=== PATIENT | female | born 1980 | race Two or more races ===

== ENCOUNTER 2024-07-05 23:20 | Emergency (ER) | payer OTHER ==
[~2024-07-05] VITALS: Ht 170.2 cm; Wt 81.0 kg
[2024-07-05 23:34] VITALS: PULSE 151; RESP 26; O2SAT 94
[2024-07-05] MEDS: DexAMETHasone SOD PHOS 10MG/1ML VIAL INJ IM ONE (23:34)
[2024-07-05] MEDS: ALBUTEROL SULF 2.5 MG/0.5ML(0.5%) NEB SOLN NEB ONE ×2 (23:45)
[2024-07-05] MEDS: IPRATROPIUM BROM 0.5 MG/2.5ML INH SOL NEB ONE (23:45)
--- NOTE | 2024-07-05 23:54 | ED.PDOC ---
SOB-HPI HPI Comments 44-year-old female who came to ER for shortness of breath. Patient does have history of asthma. 30 minutes ago, patient was asleep when she woke up the sudden-onset shortness of breath and wheezing. Was noted to be saturating 85% on room air. Breathing treatment taken at home has offered no relief prompting patient to come to the ER. Chief Complaint: Shortness of Breath Time Seen by MD: 23:51 Reviewed notes: Nurses Notes Information Source: Patient Mode of Arrival: Ambulatory Severity: Moderate Timing: Minutes Duration: Since onset Context: At Rest History of: Asthma, Anxiety Prehospital treatment: None Modifying Factors: Nothing Associated Signs and Symptoms: Wheeze, Chest Pain Quality: Tightness Radiation: No Radiation If cough with SOB: Non-Productive Review of Systems: REVIEW OF SYSTEMS: No fever, no chills, or fatigue HEENT: No sore throat, no earache, no congestion, no neck pain. Cardiac: No chest pain. No palpitations. Lungs: (+)shortness of breath, (+) wheezing, no cough. GI: No nausea, no vomiting, no diarrhea, no constipation, no abdominal pain : No dysuria, frequency, or urgency. No hematuria. Musculoskeletal: No joint pain , no joint swelling, no extremity edema. Skin: No rash, no itching. Neuro: No headache, no dizziness, no weakness Vital Signs Vital Signs Date Time Temp Pulse Resp B/P (MAP) Pulse Ox O2 Delivery O2 Flow Rate FiO2 07/05/24 23:46 20 98 Nasal Cannula* 6 44 07/05/24 23:34 151 07/05/24 23:34 122/85 (97) 07/05/24 23:22 97.5 Physical Exam General: Awake, alert and oriented. No acute distress. Skin: Skin in warm, dry and intact. Appropriate color for ethnicity. Nailbeds pink with no cyanosis. HEENT: The head is normocephalic and atraumatic. Conjunctivae are clear without exudates or hemorrhage. Sclera is non-icteric. EOM are intact. No signs of nystagmus. Eyelids are normal in appearance without swelling or lesions. Oral mucosa is pink and moist Neck: The neck is supple with normal range of motion. No JVD. Cardiac: Heart rate and rhythm are normal. No murmurs, gallops, or rubs are auscultated. Respiratory: No signs of respiratory distress. Positive wheezes bilaterally. Abdominal: Abdomen is soft, non-tender without distention. Bowel sounds are present and normoactive in all four quadrants. Extremities: Upper and lower extremities are atraumatic in appearance without deformity or edema. Neurological: The patient is awake, alert and oriented to person, place, and time with normal speech. Speech is clear. There is no facial asymmetry. Psychiatric: Appropriate mood and affect. Good judgement and insight. No visual or auditory hallucinations. 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 Was a procedure done?: No Differential Dx Differential Diagnosis: Anxiety, Asthma, Bronchitis, CHF, COPD, Myocardial infarction, Panic Attack, Pneumonia, Respiratory Distress, URI, Other X-Ray, Labs, Meds, VS Vital Signs Date Time Temp Pulse Resp B/P (MAP) Pulse Ox O2 Delivery O2 Flow Rate FiO2 07/05/24 23:46 20 98 Nasal Cannula* 6 44 07/05/24 23:34 151 26 94 Nasal Cannula* 6 44 07/05/24 23:34 151 26 122/85 (97) 94 07/05/24 23:22 26 85 Room Air* 0 21 07/05/24 23:22 97.5 151 26 122/88 (99) 85 Lab Test 07/06/24 00:33 07/05/24 23:45 Range/Units Troponin I High Sensitivity 4 < 3 L </=34 ng/L White Blood Count 8.8 4.4-10.8 10^3/uL Red Blood Count 4.42 4.0-5.20 10^6/uL Hemoglobin 13.6 12.2-16.2 g/dL Hematocrit 41.4 36.0-46.0 % Mean Corpuscular Volume 93.6 80.0-100.0 fL Mean Corpuscular Hemoglobin 30.8 28.0-32.0 pg Mean Corpuscular Hemoglobin Concent 32.9 32.0-36.0 g/dL Red Cell Distribution Width 13.4 11.8-14.3 % Platelet Count 352 140-450 10^3/uL Mean Platelet Volume 7.2 6.9-10.8 fL Neutrophils (%) (Auto) 75.2 37.0-80.0 % Lymphocytes (%) (Auto) 14.0 10.0-50.0 % Monocytes (%) (Auto) 5.1 0.0-12.0 % Eosinophils (%) (Auto) 5.1 0.0-7.0 % Basophils (%) (Auto) 0.6 0.0-2.0 % Neutrophils # (Auto) 6.6 1.6-8.6 10 ^3/uL Lymphocytes # (Auto) 1.2 0.4-5.4 10 ^3/uL Monocytes # (Auto) 0.5 0-1.3 10 ^3/uL Eosinophils # (Auto) 0.5 0-0.8 10 ^3/uL Basophils # (Auto) 0.1 0-0.2 10 ^3/uL Nucleated Red Blood Cells 0.1 % Sodium Level 138 136-145 mmol/L Potassium Level 3.5 3.5-5.1 mmol/L Chloride Level 104 98-107 mmol/L Carbon Dioxide Level 23 20-31 mmol/L Anion Gap 11 5-15 Blood Urea Nitrogen 6 L 9-23 mg/dL Creatinine 0.81 0.550-1.02 mg/dL Glomerular Filtration Rate Calc 91 >90 mL/min BUN/Creatinine Ratio 7.4 L 10.0-20.0 Serum Glucose 201 H 74-106 mg/dL Calcium Level 9.8 8.7-10.4 mg/dL Total Bilirubin 0.3 0.2-1.0 mg/dL Aspartate Amino Transferase (AST) 16 13-40 U/L Alanine Aminotransferase (ALT) 12 7-40 U/L Alkaline Phosphatase 82 46-116 U/L B-Type Natriuretic Peptide 9.99 0-100 pg/mL Total Protein 7.2 5.7-8.2 g/dL Albumin 4.6 3.2-4.8 g/dL Current Medications Medications (Trade) Dose Ordered Sig/Johanny Route Start Time Stop Time Status Last Admin Dexamethasone Sodium Phosphate (Decadron Injection) 10 mg ONCE ONCE IM 07/05/24 23:30 07/05/24 23:31 DC 07/05/24 23:34 Albuterol (Ventolin Medneb) 2.5 mg ONCE ONCE NEB 07/05/24 23:30 07/05/24 23:31 DC 07/05/24 23:45 Ipratropium [place] (Atrovent Medneb) 0.5 mg ONCE ONCE NEB 07/05/24 23:30 07/05/24 23:31 DC 07/05/24 23:45 Albuterol (Ventolin Medneb) 2.5 mg ONCE ONCE NEB 07/05/24 23:45 07/05/24 23:46 DC 07/05/24 23:45 EXAM: XY CHEST XRAY 1 VIEW FINDINGS: Lines and tubes: None Chest: The heart size and pulmonary vasculature is within normal limits No pleural effusion, pneumothorax, or consolidation. The osseous structures are grossly intact. Healed posterior/lateral 3rd, 4th, and 5th rib fractures. IMPRESSION: No acute cardiopulmonary abnormality. Time of 1ST Reevaluation: 23:49 Reevaluation 1ST: Unchanged Patient Education/Counseling: Diagnosis, Treatment Family Education/Counseling: No Family Present Departure 1 Departure Time of Disposition: 03:47 Impression: Primary Impression: Asthma exacerbation Additional Impression: Hypoxia Disposition: 09 ADMITTED INPATIENT Condition: Guarded Comments 44-year-old female who presents with severe exacerbation of asthma, patient has been hypoxic requiring 6 L of O2. Dyspnea improved after DuoNeb treatment. Patient admitted for further treatment, evaluation and monitoring. Extensive evaluation was performed in attempt to identify or rule out: (See differential diagnosis section) The following tests were ordered, and results were reviewed by me: (See diagnostic results section) The following test were independently interpreted by me: Chest x-ray I reviewed and agreed with the following test results read by other providers: Chest x-ray I reviewed the following notes from the pt's past medical encounters: (None available at this time) Additional information was gathered from interviewing the following independent historians: N/A Discussion of management or test interpretation with external physician/other qualified health transitional care liaison: N/A Addressed one or more chronic illnesses with severe exacerbation, progression, or side effects of treatment: Exacerbation of asthma, an acute or chronic illness that poses a threat to life or bodily function: Acute onset Decision regarding hospitalization or escalation of hospital level of care: Risk and benefits of admission for further treatment of patient's condition was considered. Due to patient's current clinical condition, high risk of decline and poor outcome if discharged and need for further inpatient management and monitoring, patient will be admitted to the hospital. Diagnosis or treatment significantly limited by social determinants of health: History of schizophrenia Critical Care Note Critical Care Time?: Yes (35 min-critical care time only) Critical care comment: Shortness of breath Stability Stability form required: No Heart Score Heart Score: Heart Score Response (Comments) Value History Slightly Suspicious 0 EKG Normal 0 Age <45 0 Risk Factors 1 or 2 risk factors 1 Troponin Normal limit 0 Total 1 I personally scribed for MARYCARMEN BRIZUELA MD ([email or web address]) on 07/05/24 at 23:54. Electronically submitted by Marc Daigle ([email or web address]). I personally scribed for MARYCARMEN BRIZUELA MD ([email or web address]) on 07/05/24 at 23:57. Electronically submitted by Marc Daigle ([email or web address]). I personally scribed for MARYCARMEN BRIZUELA MD ([email or web address]) on 07/06/24 at 00:22. Electronically submitted by Marc Daigle ([email or web address]). MARYCARMEN BRIZUELA MD Jul 05, 2024 23:54
[2024-07-05 23:57] LABS: Basophils # (auto) 0.1 10 ^3/uL (0-0.2); Basophils % (auto) 0.6 % (0.0-2.0); Eosinophils # (auto) 0.5 10 ^3/uL (0-0.8); Eosinophils % (auto) 5.1 % (0.0-7.0); Hematocrit 41.4 % (36.0-46.0); Hemoglobin 13.6 g/dL (12.2-16.2); Lymphocytes # (auto) 1.2 10 ^3/uL (0.4-5.4); Mean Corpuscular Hemoglobin 30.8 pg (28.0-32.0); Mean Corpuscular Hgb Conc. 32.9 g/dL (32.0-36.0); Mean Corpuscular Volume 93.6 fL (80.0-100.0); Monocytes # (auto) 0.5 10 ^3/uL (0-1.3); Monocytes % (auto) 5.1 % (0.0-12.0); Neutrophils # (auto) 6.6 10 ^3/uL (1.6-8.6); Neutrophils % (auto) 75.2 % (37.0-80.0); Nucleated Red Blood Cells % 0.1 %; Platelet Count (auto) 352 10^3/uL (140-450); Red Blood Cells 4.42 10^6/uL (4.0-5.20); Red Cell Distribution Width 13.4 % (11.8-14.3); White Blood Cell 8.8 10^3/uL (4.4-10.8)
--- NOTE | 2024-07-06 00:12 | DVH ---
EXAM: XY CHEST XRAY 1 VIEW CLINICAL HISTORY: sob TECHNIQUE: Single AP view of the chest WID: COMPARISON: None FINDINGS: Lines and tubes: None Chest: The heart size and pulmonary vasculature is within normal limits. No pleural effusion, pneumothorax, or consolidation. The osseous structures are grossly intact. Healed posterior/lateral 3rd, 4th, and 5th rib fractures. IMPRESSION: No acute cardiopulmonary abnormality.
[2024-07-06 00:17] LABS: Alanine Aminotransferase 12 U/L (7-40); Albumin 4.6 g/dL (3.2-4.8); Alkaline Phosphatase 82 U/L (46-116); Anion Gap 11 (5-15); Aspartate Aminotransferase 16 U/L (13-40); BUN/Creatinine Ratio 7.4 (10.0-20.0); Bilirubin, Total 0.3 mg/dL (0.2-1.0); Calcium 9.8 mg/dL (8.7-10.4); Carbon Dioxide 23 mmol/L (20-31); Chloride 104 mmol/L (98-107); Sodium 138 mmol/L (136-145); Total Protein 7.2 g/dL (5.7-8.2)
[2024-07-06 00:26] LABS: Blood Urea Nitrogen 6 mg/dL (9-23); Glucose 201 mg/dL (74-106); Potassium 3.5 mmol/L (3.5-5.1)
[2024-07-06 04:45] LABS: Base Excess -2.3 mmol/L (-2.0-3.0)
[2024-07-06 05:15] VITALS: BP 129/86; PULSE 107; RESP 16; TEMP 97.5; O2SAT 92
[2024-07-06 05:34] LABS: COVID19 ANTIGEN SOFIA FIA NEGATIVE (NEGATIVE); Rapid Influenza A Negative (Negative); Rapid Influenza B Negative (Negative)
--- NOTE | 2024-07-06 13:15 | ECG ---
[facility] Test Date: 2024-07-05 Test Time: 23:31:06 Pat Name: RUBEN MONTANO Department: er Room: Gender: F Client Service Executive: : 1980 Requested By: MARYCARMEN BRIZUELA Order Number: [id number] Reading MD: Yan Asencio Measurements Intervals Pala Rate: 132 P: 85 KS: 152 QRS: 108 QRSD: 84 T: -57 QT: 302 QTc: 448 Interpretive Statements Sinus tachycardia Consider right atrial enlargement Right axis deviation Borderline T wave abnormalities Electronically Signed On 07-12-2024 14:47:54 PST by Yan Asencio Please click the below link to view image of tracing.
== END 2024-07-06 05:23 | disposition left against medical advice (07) ==
LOC: ER 23:20
DX: J45.901 Unspecified asthma with (acute) exacerbation (principal); R09.02 Hypoxemia; F20.9 Schizophrenia, unspecified; Z20.822 Contact with and (suspected) exposure to COVID-19
CPT/HCPCS: 36415; 36600; 71045; 80053; 82805; 83880; 84484; 85025; 87426; 87804; 93005; 94640; 96372; 99285; J1100

== ENCOUNTER 2024-08-06 23:02 | Inpatient (IN) | payer OTHER ==
[2024-08-06] MEDS: methylPREDNISolone SOD SUCC 125 MG/2 ML VL IM ONE (23:14)
[2024-08-06] MEDS: LEVALBUTEROL HCL 1.25 MG/3 ML NEB ONE (23:18)
[2024-08-06] MEDS: LEVALBUTEROL HCL 1.25 MG/3 ML NEB NEB SCH (23:40)
--- NOTE | 2024-08-06 23:57 | DVH ---
CHEST RADIOGRAPH Indication: sob Technique: Single frontal view of the chest was obtained COMPARISON: XY CHEST XRAY 1 VIEW on DOS: 07/05/24 FINDINGS: Lines and Tubes: None Lungs: Clear Pleura: No effusion. No pneumothorax. Cardiomediastinal contours: Unremarkable Bones: Multiple chronic appearing left-sided rib deformities are seen. IMPRESSION: 1. No acute disease.
[2024-08-07] VITALS (7 sets, daily range): BP systolic 100–143; BP diastolic 67–81; PULSE 98–114; RESP 15–16; TEMP 97.5–98.1; O2SAT 93–98
--- NOTE | 2024-08-07 00:03 | ED.PDOC ---
History of Present Illness HPI Comments 44 y/o F, with a Hx of asthma, presents with c/o shortness of breath, today. Patient endorses sudden and unprovoked onset of difficulty breathing 1x hour prior to ED arrival, with no relief or improvement with at-home prescription inhaler use. She refutes any recent sick contact, travel, strenuous activities, or other additional relevant or pertinent Hx. Patient denies any chest pain, cough, congestion, fever, chills, or other associated symptoms or modifiers at this time. 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 Family History Family History: Reviewed,noncontributory to illness Social History Smoker: Non-Smoker Alcohol: Denies ETOH Use Drugs: Denies Drug Use Lives In: Home Respiratory: reports: shortness of breath All Other Systems: Reviewed and Negative (negative unless otherwise stated above or in HPI) Physical Exam General Appearance: No Apparent Distress, Normal HEENT: Normal ENT Inspection, Pharynx Normal, TMs Normal Neck: Full Range of Motion, Non-Tender, Normal, Normal Inspection Respiratory: Chest Non-Tender, No Accessory Muscle Use, Respiratory Distress ( severe), Stridor, Wheezing (on all bilateral lung prince ) Cardiovascular: No Edema, No JVD, No Murmur, No Gallop, Normal Peripheral Pulses, Regular Rate/Rhythm Breast Exam: Deferred Gastrointestinal: No Organomegaly, Non Tender, No Pulsatile Mass, Normal Bowel Sounds, Soft Genitalia: Deferred Pelvic: Deferred Rectal: Deferred Extremities: No calf tenderness, Normal capillary refill, Normal inspection, Normal range of motion, Non-tender, No pedal edema Musculoskeletal : Apperance: Normal Neurologic: Alert, 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 Was a procedure done?: No Differential Dx Considerations may include: asthma exacerbation, URI, viral syndrome, pleural effusions, PNA, bronchitis, covid19 X-Ray, Labs, Meds, VS Vital Signs Date Time Temp Pulse Resp B/P (MAP) Pulse Ox O2 Delivery O2 Flow Rate FiO2 08/06/24 23:41 20 93 Simple Mask* 6 50 08/06/24 23:05 98.0 150 28 100/75 (83) 79 Current Medications Medications (Trade) Dose Ordered Sig/Johanny Route Start Time Stop Time Status Last Admin Levalbuterol HCl (Xopenex Medneb) 1.25 mg Q6HR NEB 08/07/24 00:00 08/06/24 23:40 Methylprednisolone Sodium Succinate (Solu Medrol) 125 mg ONCE ONCE IM 08/06/24 23:15 08/06/24 23:16 DC 08/06/24 23:14 X-Ray, Labs, Meds, VS Comment Patient was had two breathing treatments and racemic epi Patient was still requiring O2 to maintain good perfusion Recommend admission for continued breathing treatments and observation Imaging: X-rays and CT scans were reviewed and interpreted by this provider, imaging shows no fractures and no pathological disease. Pending radiology review. Laboratory: Labs reviewed and interpreted by this provider. No significant abnormalities noted. Patient has prior medical visits reviewed. Med reconciliation performed Vital signs reviewed Time of 1ST Reevaluation: 23:35 Reevaluation 1ST: Unchanged Patient Education/Counseling: Diagnosis, Treatment Family Education/Counseling: No Family Present Departure 1 Departure Time of Disposition: 00:16 Impression: Primary Impression: Asthma exacerbation Qualified Codes: J45.51 - Severe persistent asthma with (acute) exacerbation Additional Impression: Hypoxia Disposition: 09 ADMITTED INPATIENT Condition: Fair Discharged With: Self Critical Care Note Critical Care Time?: No Stability Stability form required: No Heart Score Heart Score: Heart Score Response (Comments) Value History N/A 0 EKG N/A 0 Age N/A 0 Risk Factors N/A 0 Troponin N/A 0 Total 0 I personally scribed for KHOA TRUJILLO ([email or web address]) on 08/07/24 at 00:03. Electronically submitted by Mikhail Rios ([email or web address]). KHOA TRUJILLO Aug 07, 2024 00:03
[2024-08-07 01:36] LABS: Basophils # (auto) 0 10 ^3/uL (0-0.2); Basophils % (auto) 0.2 % (0.0-2.0); Eosinophils # (auto) 0.3 10 ^3/uL (0-0.8); Eosinophils % (auto) 2.2 % (0.0-7.0); Hematocrit 42.2 % (36.0-46.0); Hemoglobin 14.1 g/dL (12.2-16.2); Lymphocytes # (auto) 1.2 10 ^3/uL (0.4-5.4); Lymphocytes % (auto) 8.6 % (10.0-50.0); Mean Corpuscular Hgb Conc. 33.3 g/dL (32.0-36.0); Mean Corpuscular Volume 93.1 fL (80.0-100.0); Monocytes # (auto) 0.6 10 ^3/uL (0-1.3); Monocytes % (auto) 4.2 % (0.0-12.0); Neutrophils # (auto) 11.6 10 ^3/uL (1.6-8.6); Neutrophils % (auto) 84.8 % (37.0-80.0); Platelet Count (auto) 322 10^3/uL (140-450); Red Blood Cells 4.54 10^6/uL (4.0-5.20); Red Cell Distribution Width 13.4 % (11.8-14.3); White Blood Cell 13.7 10^3/uL (4.4-10.8)
[2024-08-07 01:45] LABS: Chloride 107 mmol/L (98-107); Potassium 3.7 mmol/L (3.5-5.1); Sodium 139 mmol/L (136-145)
[2024-08-07 01:46] LABS: Anion Gap 7 (5-15); Calcium 9.9 mg/dL (8.7-10.4); Carbon Dioxide 25 mmol/L (20-31)
[2024-08-07 01:51] LABS: BUN/Creatinine Ratio 14.1 (10.0-20.0); Blood Urea Nitrogen 11 mg/dL (9-23)
[2024-08-07] MEDS ORDERED: HYDROcodone-ACET 5/325MG TAB PO PRN (02:00)
[2024-08-07] MEDS ORDERED: ACETAMINOPHEN 325 MG TAB PO PRN (02:00)
[2024-08-07 02:07] LABS: Glucose 149 mg/dL (74-106)
--- NOTE | 2024-08-07 02:28 | DVHHPRES ---
History of Present Illness Resident Creating Document: BETTY WORRELL RESIDENT History of Present Illness This is a 44-year-old female with past medical history of asthma, schizophrenia who presented to the ED due to acute shortness of breath. The patient states that was watching TV lying down on bed when she suddenly developed shortness of breaths. The patient states she had previous asthma exacerbations with similar symptoms as this before. The patient denied fever, chills, palpitations, chest pain or any other associated symptoms at this time. Initial labs showed mild leukocytosis at 13.7, BMP was grossly unremarkable and serum glucose was elevated for which we ordered hemoglobin A1c. We ordered urinalysis, urine drug screen, COVID and influenza tests, waiting for reports. We started the patient on IV magnesium 2 g, methylprednisolone single dose was given, levalbuterol and ipratropium med nebs q.6 and azithromycin was started as well. We will admit the patient for further assessment and management. Pulmonary: Asthma Psych: Schizophrenia Past Surgical History: None Family History: None Smoke: Quit (SMOKED FOR 15 YEARS BUT QUIT 3 MONTHS AGO, CURRENTLY ON NICOTINE PATCH) ALCOHOL: none Drugs: None Lives: with Family Domestic Violence: Neg Review of Systems Constitutional: No: Fever, Chills, Sweats, Weakness, Malaise, Other Eyes: No: Pain, Vision change, Conjunctivae inflammation, Eyelid inflammation, Other, Redness ENT: No: Ear pain, Ear discharge, Nose pain, Nose discharge, Nose congestion, Mouth pain, Mouth swelling, Throat pain, Throat swelling, Other Respiratory: Cough, Shortness of breath, SOB with excertion, Wheezing; No: Dry, Hemoptysis, Pleuritic Pain, Sputum, Wheezing, Other Cardiovascular: No: Chest Pain, Palpitations, Orthopnea, Paroxysmal Noc. Dyspnea, Edema, Lt Headedness, Other Gastrointestinal: No: Nausea, Vomiting, Abdominal Pain, Diarrhea, Constipation, Melena, Hematochezia, Other Genitourinary: No Dysuria, No Frequency, No Incontinence, No Hematuria, No Retention, No Other Musculoskeletal: No: other, neck pain, shoulder pain, arm pain, back pain, hand pain, leg pain, foot pain Skin: No: Rash, Lesions, Jaundice, Bruising, Other Neurological: No: Weakness, Numbness, Incoordination, Change in speech, Confusion, Seizures, Other Allergies: Coded Allergies: Penicillins (Verified Allergy, Unknown, 07/05/24) Medications Current Medications Medications Dose Ordered Sig/Johanny Route Start Time Stop Time Status Last Admin Dose Admin Levalbuterol HCl 1.25 mg Q6HR NEB 08/07/24 00:00 08/06/24 23:40 1.25 MG Acetaminophen 650 mg Q6HP PRN PO 08/07/24 02:00 UNV Acetaminophen/ Hydrocodone Bitart 1 tab Q4HP PRN PO 08/07/24 02:00 UNV Exam Vital Signs Vital Signs Date Time Temp Pulse Resp B/P (MAP) Pulse Ox O2 Delivery O2 Flow Rate FiO2 08/07/24 01:42 98.1 99 15 100/67 97 6.0 40 98.1 08/06/24 23:41 Simple Mask* General Appearance: Alert, Oriented X3, Cooperative, mild distress HEENT: Atraumatic, PERRLA, EOMI, Mucous membr. moist/pink Respiratory: Clear to auscultation, Normal air movement, Other (MILD WHEEZES ON EXPIRATION) Cardiovascular: Regular rate, Normal S1, Normal S2, No murmurs Abdominal: Normal bowel sounds, Soft, No tenderness, No hepatospenomegaly, No masses Extremities: No clubbing, No cyanosis, No edema, Normal pulses, No tenderness/swelling Skin: No rashes, No breakdown, No significant lesion Neuro: Normal gait, Normal speech, Strength at 5/5 X4 ext, Normal tone, Sensation intact, Cranial nerves 3-12 NL, Reflexes 2+ Psych/Mental Status: Mental status NL, Mood NL Labs/Xrays Labs Test 08/07/24 00:52 Range/Units White Blood Count 13.7 H 4.4-10.8 10^3/uL Red Blood Count 4.54 4.0-5.20 10^6/uL Hemoglobin 14.1 12.2-16.2 g/dL Hematocrit 42.2 36.0-46.0 % Mean Corpuscular Volume 93.1 80.0-100.0 fL Mean Corpuscular Hemoglobin 31.0 28.0-32.0 pg Mean Corpuscular Hemoglobin Concent 33.3 32.0-36.0 g/dL Red Cell Distribution Width 13.4 11.8-14.3 % Platelet Count 322 140-450 10^3/uL Mean Platelet Volume 7.2 6.9-10.8 fL Neutrophils (%) (Auto) 84.8 H 37.0-80.0 % Lymphocytes (%) (Auto) 8.6 L 10.0-50.0 % Monocytes (%) (Auto) 4.2 0.0-12.0 % Eosinophils (%) (Auto) 2.2 0.0-7.0 % Basophils (%) (Auto) 0.2 0.0-2.0 % Neutrophils # (Auto) 11.6 H 1.6-8.6 10 ^3/uL Lymphocytes # (Auto) 1.2 0.4-5.4 10 ^3/uL Monocytes # (Auto) 0.6 0-1.3 10 ^3/uL Eosinophils # (Auto) 0.3 0-0.8 10 ^3/uL Basophils # (Auto) 0 0-0.2 10 ^3/uL Nucleated Red Blood Cells 0.0 % Assessment/Plan Assessment/Plan Assessment/Plan Acute hypoxic respiratory failure likely due to Acute asthma exacerbation COPD exacerbation? (no previous hx) -Smoked for 15 years, quit 3 months ago -Currently requiring 6 Lof O2 on simple mask sat 97% -Initial chest x ray was grossly clear w/o consolidations or pulm vasc congestion -Magnesium IV 2 gr once -Start IV azithromycin IV -Start Resp therapy with levalbuterol and ipratropium med nebs -Start prednisone 40mg po daily -Ordered Covid ana antigen test -Ordered influenza A and B test -Monitor sat closely -Modify Maintenance treatment upon discharge Hx of Schizophrenia -Patient on risperidone at home -Resume home risperidone (patient not aware of the dose) Goals of care discussed with the patient, FULL CODE Plan discussed with Dr. Foster Plan discussed with: Patient My Orders Orders - BETTY WORRELL Procedure Category Date Status Time Admit ADMIT 08/07/24 Transmitted 01:57 Code Status CODE 08/07/24 Transmitted 01:57 Vital Signs TITA 08/07/24 In Process 01:57 Review Orders With TITA 08/07/24 In Process . 01:57 Regular Diet DIET 08/07/24 Transmitted Breakfast Acetaminophen Tablet PHA 08/07/24 Logged (Tylenol Tablet) 02:00 Notify Of Changes TITA 08/07/24 In Process From Base 01:57 Advance Directive TITA 08/07/24 In Process 01:57 Urinalysis LAB 08/07/24 Logged 01:57 Lipid Panel LAB 08/07/24 Logged 01:57 Patient Condition ORDERS 08/07/24 Transmitted 01:57 Allergies TITA 08/07/24 In Process 01:57 Hydrocodone-Acet PHA 08/07/24 Logged 5/325mg Tab ([place] 02:00 Drug Screen LAB 08/07/24 Logged 01:57 Ambulate Every 4hours TITA 08/07/24 In Process 01:57 Hemoglobin A1c LAB 08/07/24 Logged 01:57 Magnesium Girish PHA 08/07/24 Transmitted 02:15 Azithromycin 500mg/ PHA 08/07/24 Transmitted 250ml (Zithromax 50 02:15 Levalbuterol Hcl PHA 08/07/24 Transmitted (Xopenex Medneb) 06:00 Ipratropium Medneb PHA 08/07/24 Transmitted (Atrovent Medneb) 06:00 Date of Service: Aug 07, 2024 Billing Provider: TALA FOSTER MD Common Visit Codes: [id number] INP/OBS CARE (HIGH) BETTY WORRELL RESIDENT Aug 07, 2024 02:28 TALA FOSTER MD Aug 07, 2024 18:46
[2024-08-07 04:31] LABS: Triglycerides 113 mg/dL (< 150)
[2024-08-07 04:33] LABS: LDL Cholesterol 147 mg/dL (< 100)
[2024-08-07 04:54] LABS: Cholesterol 203 mg/dL (< 200); HDL Cholesterol 60 mg/dL (40-59)
[2024-08-07] MEDS: IPRATROPIUM BROM 0.5 MG/2.5ML INH SOL NEB SCH (06:59)
[2024-08-07] MEDS: LEVALBUTEROL HCL 1.25 MG/3 ML NEB NEB SCH (07:00)
[2024-08-07] MEDS: AZITHROMYCIN 500MG/ 250ML 250 ML IV SCH (07:44)
[2024-08-07 07:45] LABS: Urine Bacteria None Seen /hpf (None Seen)
[2024-08-07 08:03] LABS: Urine Blood Negative /uL (Negative); Urine Clarity Turbid (Clear); Urine Color Yellow (Yellow); Urine Hyaline Cast FEW /lpf (0 - 2); Urine Mucus FEW (None Seen); Urine Protein, UAD TRACE (Negative); Urine Specific Gravity 1.029 (1.001-1.035); Urine Squamous Epithelial Cell FEW /hpf (<5); Urine Urobilinogen Normal (Negative); Urine WBC 17 /hpf (0 - 5); Urine pH 5.5 (5.0-9.0)
[2024-08-07] MEDS: MAGNESIUM SULFATE 1GM/100ML 100 ML IV SCH (08:07)
[2024-08-07 08:14] LABS: COVID19 ANTIGEN SOFIA FIA NEGATIVE (NEGATIVE); Rapid Influenza A Negative (Negative); Rapid Influenza B Negative (Negative)
[2024-08-07 08:17] LABS: Amphetamine Screen, Urine Neg (NEGATIVE)
[2024-08-07 08:29] LABS: Barbiturate Scree,Urine Neg (NEGATIVE); Benzodiazephine Screen, Urine Neg (NEGATIVE); Cannabinoid Screen, Urine Neg (NEGATIVE); Cocaine Screen, Urine Neg (NEGATIVE); Opiate Scree,Urine Neg (NEGATIVE); Phencyclidine Screen, Urine Neg (NEGATIVE)
[2024-08-07] MEDS: predniSONE 20 MG TAB PO SCH (10:05)
[2024-08-07] MEDS ORDERED: MOME1AER5 IN (12:12)
--- NOTE | 2024-08-07 15:30 | DVHDSRES ---
Discharge Summary Date of Admission Resident Creating Document: ANNAMARIE MIN RESIDENT Aug 07, 2024 at 01:57 Date of Discharge: Aug 07, 2024 Admitting Diagnosis Asthma exacerbation Labs/Diagnostic Data: Laboratory Results Test 08/07/24 07:16 08/07/24 07:14 08/07/24 00:52 Influenza Type A Antigen Negative (Negative) Influenza Type B Antigen Negative (Negative) SARS-CoV-2 Antigen (Rapid) Negative (NEGATIVE) Urine Color Yellow (Yellow) Urine Clarity Turbid (Clear) Urine pH 5.5 (5.0-9.0) Urine Specific [place] 1.029 (1.001-1.035) Urine Protein Trace (Negative) Urine Ketones Negative (Negative) Urine Blood Negative /uL (Negative) Urine Nitrite Negative (Negative) Urine Bilirubin Negative (Negative) Urine Urobilinogen Normal mg/dL (Negative) Urine Leukocyte Esterase 3+ /uL (Negative) Urine RBC 6 /hpf (0 - 4) Urine WBC 17 /hpf (0 - 5) Urine Squamous Epithelial Cells Few /hpf (<5) Urine Bacteria None seen /hpf (None Seen) Urine Hyaline Casts Few /lpf (0 - 2) Urine Mucus Few (None Seen) Urine Glucose Normal mg/dL (Normal) Urine Opiates Screen Neg (NEGATIVE) Urine Fentanyl Screen Neg (NEGATIVE) Urine Barbiturates Screen Neg (NEGATIVE) Urine Phencyclidine Screen Neg (NEGATIVE) Urine Amphetamines Screen Neg (NEGATIVE) Urine Benzodiazepines Screen Neg (NEGATIVE) Urine Cocaine Screen Neg (NEGATIVE) Urine Cannabinoids Screen Neg (NEGATIVE) White Blood Count 13.7 10^3/uL (4.4-10.8) Red Blood Count 4.54 10^6/uL (4.0-5.20) Hemoglobin 14.1 g/dL (12.2-16.2) Hematocrit 42.2 % (36.0-46.0) Mean Corpuscular Volume 93.1 fL (80.0-100.0) Mean Corpuscular Hemoglobin 31.0 pg (28.0-32.0) Mean Corpuscular Hemoglobin Concent 33.3 g/dL (32.0-36.0) Red Cell Distribution Width 13.4 % (11.8-14.3) Platelet Count 322 10^3/uL (140-450) Mean Platelet Volume 7.2 fL (6.9-10.8) Neutrophils (%) (Auto) 84.8 % (37.0-80.0) Lymphocytes (%) (Auto) 8.6 % (10.0-50.0) Monocytes (%) (Auto) 4.2 % (0.0-12.0) Eosinophils (%) (Auto) 2.2 % (0.0-7.0) Basophils (%) (Auto) 0.2 % (0.0-2.0) Neutrophils # (Auto) 11.6 10 ^3/uL (1.6-8.6) Lymphocytes # (Auto) 1.2 10 ^3/uL (0.4-5.4) Monocytes # (Auto) 0.6 10 ^3/uL (0-1.3) Eosinophils # (Auto) 0.3 10 ^3/uL (0-0.8) Basophils # (Auto) 0 10 ^3/uL (0-0.2) Nucleated Red Blood Cells 0.0 % Sodium Level 139 mmol/L (136-145) Potassium Level 3.7 mmol/L (3.5-5.1) Chloride Level 107 mmol/L (98-107) Carbon Dioxide Level 25 mmol/L (20-31) Anion Gap 7 (5-15) Blood Urea Nitrogen 11 mg/dL (9-23) Creatinine 0.78 mg/dL (0.550-1.02) Glomerular Filtration Rate Calc 95 mL/min (>90) BUN/Creatinine Ratio 14.1 (10.0-20.0) Serum Glucose 149 mg/dL (74-106) Hemoglobin A1c 5.7 % A1C (<5.7) Calcium Level 9.9 mg/dL (8.7-10.4) Triglycerides Level 113 mg/dL (< 150) Cholesterol Level 203 mg/dL (< 200) LDL Cholesterol 147 mg/dL (< 100) HDL Cholesterol 60 mg/dL (40-59) Other Laboratory Tests 08/07/24 00:52 Brief Hx & Hospital Course: This is a 44-year-old female with past medical history of asthma, schizophrenia who presented to the ED due to acute shortness of breath. The patient states that was watching TV lying down on bed when she suddenly developed shortness of breaths. The patient states she had previous asthma exacerbations with similar symptoms as this before. The patient denied fever, chills, palpitations, chest pain or any other associated symptoms at this time. Initial labs showed mild leukocytosis at 13.7, BMP was grossly unremarkable and serum glucose was elevated for which we ordered hemoglobin A1c. We ordered urinalysis, urine drug screen, COVID and influenza tests, waiting for reports. We started the patient on IV magnesium 2 g, methylprednisolone single dose was given, levalbuterol and ipratropium med nebs q.6 and azithromycin was started as well. Hospital course: Chest x-ray showed no acute disease, COVID and influenza testing came back negative. On physical examination, patient had no wheezing, crackles, dyspnea or shortness of breath. Patient was discharged home with Dulera pump and instructed to follow up with PCP and in the discharge clinic in 1-2 weeks. Details of discharge and plan of care were discussed with the patient and daughter at bedside in great detail were all questions were answered and concerns were addressed. Her hospital course was uncomplicated. General Appearance: Cooperative. Well developed. Well nourished. NAD Head Exam: Normal inspection Neck Exam: Normal inspection. Non-tender. Normal alignment Pulmonary/Respiratory: Chest non-tender. Clear bilateral breath sounds, no crackles, no wheezing. Cardiovascular/Chest: Regular rate and rhythm. No murmurs. No JVD. Peripheral Pulses: 2+ Radial (R). 2+ Radial (L). 2+ Pedal (R). 2+ Pedal (L) Abdominal Exam: Normal bowel sounds. Soft. normal abdomen, no visible veins, Nontender. No hepatospenomegaly. No masses Ankle Exam: Negative ankle edema Lower extremities: Negative lower extremity edema Neuro/Mental Status: A&O x4. Coherent. Thoughts/Psych: Normal thought pattern. Appropriate mood and affect. Good judgement and insight Skin Exam: Normal inspection. Normal color. Warm. Dry Condition at Discharge: Good Final Diagnosis/Problems List asthma exacerbation schizophrenia Discharge Disposition: Home Discharge Instruct/Medications Diet: Regular Activity: No Restrictions, As Tolerated Follow Up/Referral: pls follow up in dc clinic in 1 week Medications: dulera inhaler Discharge Statement: "Patient was advised to return to the ER or call 911 if any headaches, dizziness, shortness of breath, chest pain, abdominal pain, bleeding, fevers, or worsening of medical condition. Patient was counseled about treatment plan, medications, possible side effects, patientverbalized understanding. All questions were answered to the best of my ability. This discharge took greater then 30 minutes in planning, reviewing documentation, counseling the patient, and discussing with other team members." ASSESSMENT ASSESSMENT Assessment asthma exacerbation schizophrenia Date of Service: Aug 07, 2024 Billing Provider: KATARZYNA GONZALEZ MD Common Visit Codes: [id number] INP/OBS CARE(HIGH) ANNAMARIE MIN RESIDENT Aug 07, 2024 15:30 KATARZYNA GONZALEZ MD Aug 07, 2024 20:21
== END 2024-08-07 13:47 | disposition home or self-care (01) | DRG 133 ==
LOC: ER 23:02 → OVERFLOW 08-07 01:57
PROVIDERS: ADMIT Student in an Organized Health Care Education/Training Program; ATTEND Internal Medicine
DX: J96.01 Acute respiratory failure with hypoxia (principal); J45.21 Mild intermittent asthma with (acute) exacerbation; Z20.822 Contact with and (suspected) exposure to COVID-19; F20.9 Schizophrenia, unspecified; Z88.0 Allergy status to penicillin
CPT/HCPCS: 36415; 71045; 80048; 80061; 80307; 81001; 83036; 85025; 87426; 87804; 94640; G0378